=== PATIENT | female | born 1955 | race Caucasian/White ===

== ENCOUNTER 2016-08-12 12:17 | Emergency (ER) | payer OTHER, BC ==
[2016-08-12 12:31] VITALS: BP 169/78
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
== END 2016-08-12 12:40 | disposition home or self-care (01) ==
LOC: ED 12:17
DX: S16.1XXA Strain of muscle, fascia and tendon at neck level, initial encounter (principal); S39.012A Strain of muscle, fascia and tendon of lower back, initial encounter; V53.6XXA Passenger in pick-up truck or van injured in collision with car, pick-up truck or van in traffic accident, initial encounter; Y92.488 Other paved roadways as the place of occurrence of the external cause; R03.0 Elevated blood-pressure reading, without diagnosis of hypertension; E78.00 Pure hypercholesterolemia, unspecified; G47.30 Sleep apnea, unspecified; E11.9 Type 2 diabetes mellitus without complications; Z79.84 Long term (current) use of oral hypoglycemic drugs
CPT/HCPCS: 99283

== ENCOUNTER 2017-12-28 11:21 | Outpatient (CLI) | payer BC ==
--- NOTE | 2017-12-31 12:36 | Mammography Report ---
Reason: SCREENING MAMMO Procedure Date: 12/28/2017 Accession Number: [id number] / [id number] Procedure: [facility] - Screening Mammo w/Neal CPT Code: FULL RESULT: EXAM: Screening Mammo w/Neal DATE: 12/28/2017 12:11 PM CLINICAL HISTORY: 62-year-old female with personal history of left breast cancer status post lumpectomy and radiation as well as right breast biopsies. TECHNIQUE: Bilateral CC and MLO views were obtained. COMPARISON: 12/27/2016, 11/26/2015, 05/27/2015, 10/20/2014. FINDINGS: The breasts demonstrate scattered fibroglandular densities bilaterally. Stable postoperative changes of both breasts are again seen. No suspicious masses, clustered microcalcifications, or regions of architectural distortion are identified. IMPRESSION: Benign findings RECOMMENDATION: Routine annual mammography. BIRADS CATEGORY 2: Benign findings STANDARD QUALIFYING STATEMENTS: 1. This examination was not reviewed with the aid of Computer-Aided Detection (CAD). 2. A negative or benign imaging report should not delay biopsy if clinically suspicious findings are present. Consider surgical consultation if warrented. More than 5% of cancers are not identified by imaging. 3. Dense breasts may obscure an underlying neoplasm. 4. This examination was reviewed with the aid of 3D breast imaging (tomosynthesis).
== END 2017-12-28 11:22 | disposition home or self-care (01) ==
LOC: DI 11:21
DX: Z12.31 Encounter for screening mammogram for malignant neoplasm of breast (principal); Z85.3 Personal history of malignant neoplasm of breast
CPT/HCPCS: 77063; 77067

== ENCOUNTER 2022-08-10 14:58 | Outpatient (CLI) | payer BC ==
--- NOTE | 2022-08-11 09:10 | Mammography Report ---
BILATERAL DIGITAL SCREENING MAMMOGRAM 3D/2D WITH EXAGGERATED CC: 08/10/2022 CLINICAL: Routine screening. Personal history of left breast cancer. Comparison is made to exams dated: 12/28/2017 mammogram, 12/27/2016 mammogram, 11/26/2015 mammogram, 05/27/2015 mammogram, and 10/20/2014 mammogram - [facility]. Both breasts are almost entirely fatty (category a/<25% glandular tissue). The left breast has post-operative findings. There are biopsy site markers on both breasts. There is an irregular equal density focal asymmetry in the right breast at 11 o'clock posterior depth . This is more prominent and increased in size. No other significant masses, calcifications, or other findings are seen in either breast. IMPRESSION: INCOMPLETE: NEEDS ADDITIONAL IMAGING EVALUATION The irregular equal density focal asymmetry in the right breast is indeterminate. Additional views w ith possible ultrasound are recommended. This exam was interpreted at Station ID: [id number]. NOTE: For mammograms, a report in lay terms will be sent to the patient. Approximately 15% of breast malignancies will not be visualized mammographically. In the management of a palpable breast mass, a negative mammogram must not discourage biopsy of a clinically suspicious lesion. Electronically Signed By: Darryn Parsons M.D. aty/:08/11/2022 07:34:32 ACR BI-RADS Category 0: Incomplete 3340F PARENCHYMAL PATTERN: (F) - The breast(s) demonstrate(s) diffuse fatty replacement. BI-RADS CATEGORY: (0) - 0 Mammo and [place] [id number] Immediate follow-up LATERALITY: (R)
== END 2022-08-10 14:59 | disposition home or self-care (01) ==
LOC: DI 14:58
DX: Z12.31 Encounter for screening mammogram for malignant neoplasm of breast (principal); Z85.3 Personal history of malignant neoplasm of breast; R92.8 Other abnormal and inconclusive findings on diagnostic imaging of breast

== ENCOUNTER 2022-08-31 07:45 | Outpatient (CLI) | payer BC ==
--- NOTE | 2022-09-01 09:45 | Ultrasound Report ---
LIMITED ULTRASOUND OF RIGHT BREAST AND AXILLA: 08/31/2022 CLINICAL: Patient returns today to evaluate a focal asymmetry in the right breast. Comparison is made to exams dated: 08/31/2022 mammogram, 08/10/2022 mammogram, 12/28/2017 mammogram, mammogram, and 11/26/2015 mammogram - [facility]. Color flow and real-time ultrasound of the right breast 9 o'clock, and axilla regions were performed. Mckinnon scale images of the real-time examination were reviewed. There is a 1 cm x 0.8 cm x 0.5 cm taller than wide irregular mass in the right breast at 9 o'clock po sterior depth 10 cm from the nipple. This irregular mass is hypoechoic. This correlates with mammog areli findings. Color flow imaging demonstrates that there is no vascularity present. No significant abnormalities were seen sonographically in the right axilla. IMPRESSION: SUSPICIOUS OF MALIGNANCY The 1 cm x 0.8 cm x 0.5 cm taller than wide irregular mass in the right breast is at a high suspicion for malignancy. An ultrasound guided biopsy is recommended. No enlarged right axillary lymph nodes. This exam was interpreted at Station ID: [id number]. Electronically Signed By: Jim Land M.D. [facility]/:08/31/2022 09:34:08 Ultrasound BI-RADS: 4c High suspicion of malignancy BI-RADS CATEGORY: (4c) - High Susp Ultrasound [id number] Immediate follow-up LATERALITY: (B)
--- NOTE | 2022-09-01 09:45 | Mammography Report ---
UNILATERAL RIGHT DIGITAL DIAGNOSTIC MAMMOGRAM 3D/2D: 08/31/2022 CLINICAL: Patient returns today to evaluate a focal asymmetry in the right breast. Comparison is made to exams dated: 12/28/2017 mammogram, 12/27/2016 mammogram, 11/26/2015 mammogram, 05/27/2015 mammogram, 08/10/2022 mammogram, and 10/20/2014 mammogram - [facility]. The right breast is almost entirely fatty (category a/<25% glandular tissue). There are biopsy site markers on the right breast. There is an irregular focal asymmetry in the right breast at 11 o'clock posterior depth. This is mor e prominent. No other significant masses or calcifications are seen in the breast. IMPRESSION: INCOMPLETE: NEEDS ADDITIONAL IMAGING EVALUATION The irregular focal asymmetry in the right breast is indeterminate. A targeted ultrasound is recommended and will immediately follow. This exam was interpreted at Station ID: [id number]. NOTE: For mammograms, a report in lay terms will be sent to the patient. Approximately 15% of breast malignancies will not be visualized mammographically. In the management of a palpable breast mass, a negative mammogram must not discourage biopsy of a clinically suspicious lesion. Electronically Signed By: Jim Land M.D. slc/:08/31/2022 08:27:35 ACR BI-RADS Category 0: Incomplete 3340F PARENCHYMAL PATTERN: (F) - The breast(s) demonstrate(s) diffuse fatty replacement. BI-RADS CATEGORY: (0) - 0 Ultrasound [id number] Immediate follow-up LATERALITY: (B)
== END 2022-08-31 07:46 | disposition home or self-care (01) ==
LOC: DI 07:45
PROVIDERS: ATTEND Student in an Organized Health Care Education/Training Program
DX: N63.15 Unspecified lump in the right breast, overlapping quadrants (principal)

== ENCOUNTER 2022-09-07 09:44 | Outpatient (CLI) | payer BC ==
[2022-09-07] MEDS ORDERED: LIDOCAINE-MPF 1% 5 ML VIAL ONE (10:32)
[2022-09-07] MEDS ORDERED: LIDOCAINE 1%-EPI 1:100000 20 ML MDV ONE (10:32)
[2022-09-07] MEDS ORDERED: LIDOCAINE-MPF 1% 5 ML VIAL TD ONE (16:34)
[2022-09-07] MEDS ORDERED: LIDOCAINE 1%-EPI 1:100000 20 ML MDV SUBQ ONE (16:37)
--- NOTE | 2022-09-15 09:03 | Mammography Report ---
UNILATERAL RIGHT DIGITAL DIAGNOSTIC MAMMOGRAM POST-PROCEDURE IMAGING FOR MARKER PLACEMENT: 09/07/2022 CLINICAL: Post right breast ultrasound biopsy clip placement imaging. Comparison is made to exams dated: 08/31/2022 ultrasound, 08/31/2022 mammogram, 08/10/2022 mammogram, mammogram, and 12/27/2016 mammogram - [facility]. The right breast is almost entirely fatty (category a/<25% glandular tissue). A new sonographically introduced biopsy marker is present. There is an irregular focal asymmetry in the right breast at 11 o'clock posterior depth. This is mor e prominent. No other significant masses or calcifications are seen in the breast. IMPRESSION: POST PROCEDURE MAMMOGRAM FOR MARKER PLACEMENT Status post biopsy of right breast mass. This exam was interpreted at Station ID: [id number]. NOTE: For mammograms, a report in lay terms will be sent to the patient. Approximately 15% of breast malignancies will not be visualized mammographically. In the management of a palpable breast mass, a negative mammogram must not discourage biopsy of a clinically suspicious lesion. Electronically Signed By: Sherif renteria/:09/07/2022 13:34:34 ACR BI-RADS Category Post-procedure mammogram for marker placement PARENCHYMAL PATTERN: (F) - The breast(s) demonstrate(s) diffuse fatty replacement. BI-RADS CATEGORY: () - Biopsy follow-up recall n/a LATERALITY: (B)
--- NOTE | 2022-09-15 09:03 | Ultrasound Report ---
ULTRASOUND GUIDED BIOPSY RIGHT BREAST: 09/07/2022 CLINICAL: Right breast mass. PATIENT CONSENT: Risks (minor bleeding, infection, vasovagal reaction and repeat procedure), benefits and alternatives were explained to the patient and written informed consent was obtained. Correlation is made to exams dated: 08/31/2022 ultrasound, 08/31/2022 mammogram, and 08/10/2022 mammogra [facility]. An ultrasound guided biopsy using real-time ultrasound was performed for the 1 cm x 0.8 cm x 0.5 cm a bnormality located in the right breast at 9 o'clock posterior depth 10 cm from the nipple. The skin was prepped in the usual manner. A biopsy needle was placed adjacent to the abnormality under ultras ound guidance. Once the needle was documented to be in the correct location, a specimen was obtained using an automated biopsy gun. The specimen was sent to the laboratory for pathological analysis. A biopsy marker was placed at the site of biopsy. IMPRESSION: ULTRASOUND GUIDED BIOPSY MALIGNANT Ultrasound guided biopsy of the 1 cm x 0.8 cm x 0.5 cm mass in the right breast posterior depth was p erformed. Pathology indicates malignant invasive ductal carcinoma (ID). Pathology results are conco rdant with imaging findings. A surgical/oncologic consultation is recommended. This exam was interpreted at Station ID: [id number]. Sherif renteria,aty/:09/14/2022 19:19:43 BI-RADS CATEGORY: () - Unspecified - other recall n/a LATERALITY: (B)
== END 2022-09-07 09:45 | disposition home or self-care (01) ==
LOC: DI 09:44
PROVIDERS: ATTEND Student in an Organized Health Care Education/Training Program
DX: C50.811 Malignant neoplasm of overlapping sites of right female breast (principal); Z17.0 Estrogen receptor positive status [ER+]
CPT/HCPCS: 19083

== ENCOUNTER 2023-01-31 17:26 | Emergency (ER) | payer BC ==
[2023-01-31 17:41] VITALS: BP 146/74; O2SAT 98
--- NOTE | 2023-01-31 18:08 | ED Physician Documentation ---
PD HPI FOCAL NEURO - Stated complaint Stated Complaint: RT SIDE FACE NUMBNESS - Chief complaint Chief Complaint: Neuro - History obtained from History obtained from: Patient - History of Present Illness Timing - details: Gradual onset Severity of deficit: Moderate Weakness: Face, Right Associated symptoms: No: Headache, Nausea / vomiting, Seizure, Syncope, Fall, Head injury, Chest pain, Neck pain, Back pain, Fever Contributing factors: negative: Anticoagulated, Vascular dz, Atrial fibrillation, Prosthetic heart valve Baseline status: positive: A&OX3, ambulatory, indep - Additional information Additional information: 67-year-old female presents to the emergency department right-sided facial droop. Started today. Saw her PCP and she states that she thinks she has Flood's palsy, her PCP sent her here for "head CT". Her PCP did however write her for prednisone. Patient has no other symptoms. She states her right eye is more watery than usual. No rash. No other weakness, numbness. Ambulating without difficulty. Drove herself to the emergency department. Review of Systems Constitutional: denies: Fever, Chills Eyes: denies: Decreased vision, Photophobia Ears: denies: Ear pain Nose: denies: Rhinorrhea / runny nose, Congestion, Reviewed and negative PD PAST MEDICAL HISTORY - Past Medical History Past Medical History: Yes Cardiovascular: High cholesterol Respiratory: Sleep apnea, CPAP use Endocrine/Autoimmune: Type 2 diabetes GI: None : None HEENT: None Psych: None, Depression Musculoskeletal: None Derm: None - Past Surgical History Past Surgical History: Yes General: Appendectomy /AIRCRAFT MACHINIST: Hysterectomy, Other HEENT: Tonsil/Adenoidectomy - Present Medications Home Medications: Ambulatory Orders Medication Instructions Recorded Confirmed Citalopram Hydrobromide [Celexa] 10 mg ORAL DAILY 05/13/14 08/12/16 metFORMIN [Glucophage] 500 mg ORAL BID 05/13/14 08/12/16 Cyclobenzaprine [Flexeril] 10 mg PO TID PRN #14 tablet 08/12/16 Meloxicam 1 tab PO DAILY 08/12/16 08/12/16 Valacyclovir HCl [Valtrex] 1,000 mg PO TID #21 tablet 01/31/23 - Allergies Allergies/Adverse Reactions: Allergies Allergy/AdvReac Type Severity Reaction Status Date / Time depolupron AdvReac Rash Uncoded 01/31/23 17:33 - Social History Does the pt smoke?: No Smoking Status: Never smoker Does the pt drink ETOH?: Yes Does the pt have substance abuse?: No - Immunizations Immunizations are current?: Yes - POLST Patient has POLST: No PD ED PE NORMAL - Vitals Vital signs reviewed: Yes - General General: Alert and oriented X 3, No acute distress - HEENT HEENT: Atraumatic, PERRL, EOMI, Ears normal, Moist mucous membranes, Other (Right-sided facial droop involving the forehead. Positive Flood's phenomenon on the right. Positive flattening of the nasolabial fold. Otherwise normal examination of the face) - Neck Neck: Supple, no meningeal sign - Cardiac Cardiac: RRR, Strong equal pulses - Respiratory Respiratory: No respiratory distress, Clear bilaterally - Abdomen Abdomen: Soft, Non tender, Non distended - Derm Derm: Warm and dry - Extremities Extremities: No deformity - Neuro Neuro: Alert and oriented X 3, Normal speech Eye Opening: Spontaneous Motor: Obeys Commands Verbal: Oriented GCS Score: 15 - Psych Psych: Normal mood, Normal affect Results - Vitals Vitals: Vital Signs - 24 hr 01/31/23 17:33 Temperature 36.8 C Heart Rate 69 Respiratory 16 Rate Blood Pressure 146/74 H O2 Saturation 98 Oxygen O2 Source Room air PD Medical Decision Making - ED course Complexity details: considered differential, d/w patient ED course: 67-year-old female with a clear Flood's palsy on examination. No indication for further workup or imaging. Will place her on valacyclovir for home. She already has a prescription for prednisone. Recommend gel tears and artificial tears frequently. No other neurological deficits. Normal strength. Normal sensation in the extremities. Normal gait. No headache. No trauma. No fevers. No seizures. Patient counseled regarding signs and symptoms for which I believe and urgent re-evaluation would be necessary. Patient with good understanding of and agreement to plan and is comfortable going home at this time This document was made in part using voice recognition software. While efforts are made to proofread this document, sound alike and grammatical errors may occur. 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 Please take the prednisone as prescribed by your primary care provider. We will add valacyclovir. You should also be using artificial tears to help lubricate the right eye, this will help to prevent a corneal abrasion or corneal ulcer. You should use gel tears at night, some people find that they may need to tape their eyelid shut at night. Please return if you worsen. Your prescription was sent to [facility] in [place] Forms: PCP List Discharge Date/Time: 01/31/23 18:11
== END 2023-01-31 18:11 | disposition home or self-care (01) ==
LOC: ED 17:26
DX: G51.0 Bell's palsy (principal); E11.9 Type 2 diabetes mellitus without complications; E78.00 Pure hypercholesterolemia, unspecified; Z79.899 Other long term (current) drug therapy; Z79.84 Long term (current) use of oral hypoglycemic drugs
CPT/HCPCS: 99282; 99283